=== PATIENT | male | born 1970 | race Caucasian/White ===

== ENCOUNTER 2023-07-20 05:55 | Day surgery (SDC) | payer OTHER, SELFPAY ==
[2023-07-01 07:54] VITALS: BMI 32.7
[2023-07-01 08:20] LABS: % Basophils 0.3 % (0-2); % Eosinophils 1.1 % (0-6); % Immature Granulocytes 0.2 % (0-0.5); % Lymphocytes 19.2 % (20.5-51.1); % Neutrophils 70.2 % (42.2-75.2); Absolute Eosinophils 0.1 10^3/uL (0-0.7); Absolute Lymphocytes 2.2 10^3/uL (1.2-3.4); Absolute Neutrophils 8.1 10^3/uL (1.4-6.5); Hematocrit 35.9 % (39.0-52.0); Mean Corp Hgb Conc. 36.2 g/dL (33.0-37.0); Mean Corpuscular Hgb 33.2 pg (27.0-31.0); Mean Corpuscular Volume 91.6 fL (80.0-94.0); Nucleated Red Blood Cells % 0 % (-); Platelet Count 284 10^3/uL (130-400); Red Blood Cell Count 3.92 10^6/uL (4.70-6.10); Red Cell Dist. Width 11.5 % (11.5-14.5); White Blood Cell Count 11.5 10^3/uL (4.8-10.8)
[2023-07-01 08:40] LABS: INR 1.25; PT 15.6 Sec (11.4-14.6)
[2023-07-01 08:51] LABS: ALT (SGPT) 39 U/L (0-50); AST (SGOT) 27 U/L (17-59); Albumin 4.4 g/dl (3.5-5.0); Alkaline Phosphatase 58 U/L (38-126); Blood Urea Nitrogen 16 mg/dl (9-20); Carbon Dioxide 27 mmol/L (22-30); Chloride 104 mmol/L (98-107); Estimated Creatinine Clearance 99 ml/min; Glucose 101 mg/dl (70-99); Potassium 3.9 mmol/L (3.5-5.1); Sodium 137 mmol/L (135-145); Total Bilirubin 0.8 mg/dl (0.2-1.3); eGFR > 60.00
[2023-07-20] VITALS (11 sets, daily range): BP systolic 112–139; BP diastolic 63–82; BMI 29.6
[2023-07-20 09:04] LABS: ACT-LR - POC 237 Seconds (116-155)
[2023-07-20 09:23] LABS: ACT-LR - POC 260 Seconds (116-155)
[2023-07-20 09:35] LABS: ACT-LR - POC 281 Seconds (116-155); ACT-LR - POC 297 Seconds (116-155)
[2023-07-20 09:49] LABS: ACT-LR - POC 398 Seconds (116-155)
[2023-07-20 10:19] LABS: ACT-LR - POC 361 Seconds (116-155)
[2023-07-20 10:42] LABS: ACT-LR - POC 387 Seconds (116-155)
[2023-07-20 10:55] LABS: ACT-LR - POC 347 Seconds (116-155)
[2023-07-20 11:26] LABS: ACT-LR - POC 353 Seconds (116-155)
[2023-07-20 11:48] LABS: ACT-LR - POC 203 Seconds (116-155)
--- NOTE | 2023-07-20 12:09 | ITS.CL.ABL ---
Production Metal Sprayer - Ablation
Ablation
Procedure Report:
Procedure Date: 07/20/2023
Stove Fitter: Serge Hagen DO
Secondary Senior Biostatistician/Group Leader: Ran Stark MD
Patient History:
Patient is a pleasant 52-year-old male with a past medical history significant for mixed hyperlipidemia, obesity, sleep apnea, paroxysmal fib status post PVI 2020 at [facility].
See H&P for complete details.
Indication:
Symptomatic paroxysmal atrial fibrillation, recurrence post ablation
Arrhythmia Specific History:
Prior Medical Therapies for Rate and Rhythm Control:
X Beta-jaja
[ ] Calcium channel-jaja
[ ] Amiodarone
[ ] Dronederone
[ ] Sotalol
X Flecainide
[ ] Dofetilide
[ ] Options limited by bradycardia
[ ] Options limited by comorbid renal disease
Prior Procedural Therapies for AF/AFL:
[ ] Cardioversion
X Pulmonary Vein Isolation
[ ] Posterior Wall Isolation
[ ] Additional lines (Specify)
[ ] Surgical Acuña-MAZE or PVI (Specify)
Procedure Performed:
X AF ablation procedure (05728) -- includes LA/CS pacing, trans-septal, 3D mapping, + ICE
[ ] +IV drug (47208)
[ ] +Other Arrhythmia (63213)
[ ] +Other AF Line/ablation (53113)
Risks and expected recovery has been explained in detail. Alternative options have been explored, and in a shared-decision making fashion we have decided that this was the most appropriate procedure.
Method
NPO status confirmed. Grounding pad applied. Defibrillator pads applied. Continuous surface ECG, pulse oximetry, and blood pressure were monitored. Procedure was performed under general anesthesia, with anesthesia services.
Both groins were clipped, prepped with Chloraprep, and draped in sterile fashion. Time out was called. Local anesthesia administered with bupivacaine. The right and left femoral veins were accessed for catheter placement, using ultrasound guidance,
micro-puncture needle/wire, and modified seldinger technique. 3 sheaths were placed. The following catheters were used:
[ ] Tacticath SE (D/F Curve) ablation catheter
[ ] Viewflex 9Fr ICE catheter
X Inquiry decapolar 6Fr diagnostic catheter
[ ] CRD Hex 6Fr
[ ] Arctic Front Advance Cryoballoon ([ ]28mm[ ]23mm)
[ ] Achieve Advance mapping catheter ([ ]15mm[ ]20mm)
X FlexCath Contour 10 Fr with PulseSelect PFA Catheter
X Advisor HD Grid Mapping Catheter, SE
[ ] Acuson AcuNav 8 Fr ICE catheter
[ ]Other: [ ]
Intracardiac ultrasound (ICE) was carefully advanced into the right atrium to guide sheath placement over a J-wire, catheter placement, guide trans-septal puncture, identify potential complications, identify anatomic structures and ensure proper
contact between ablation catheter and tissue.
Heparin was given prior to trans-septal puncture. Heparin was given to achieve and maintain a target ACT of 300-400 seconds throughout the procedure.
Trans-septal access was performed under ICE guidance. The trans-septal puncture was performed with a SafeSept wire through a Brockenbrough needle assembly through the steerable sheath. The wire was visualized as it entered the LSPV and system
advanced under ICE guidance and fluoroscopy into the LA. The Brockenbrough needle assembly, SafeSept wire and sheath dilator were removed under negative pressure. LA pressure was measured and recorded.
ICE and 3D mapping was performed to identify relevant cardiac structures. A careful 3D map was created to assess for regions of low-voltage and abnormal electrogram signals using HD grid mapping catheter and PulseSelect catheter. Additional mapping
was performed as outlined below.
During mapping, patient spontaneously went into atrial fibrillation. A 200 J synchronized cardioversion restored sinus rhythm however prior to ablation, patient returned to atrial fibrillation. Therefore, ablation was performed while in atrial
fibrillation. Prior to ablation, glycopyrrolate was provided. PulseSelect catheter was advanced over J-wire to the ostium of each vein. Pulmonary vein isolation was performed with ostial and antral lesions in a circumferential manner. Contact was
visualized via ICE, fluoroscopy, and EGM signals. During ablation, patient spontaneously returned to sinus rhythm. Following completion of ablation lesions, a post-ablation voltage/activation map was performed in sinus rhythm. Entrance and exit
block were confirmed for each vein.
Catheter and sheath were removed from the left atrium and post-ablation intracardiac echo evaluation was consistent with pre-ablation with no changes and no pericardial effusion and there is no left atrial thrombus or left ventricle thrombus seen.
Electrophysiology study was performed. Hemostasis was obtained with Vascade for each sheath and with manual pressure. Protamine was used for reversal.
Estimated Blood Loss
5-10 mL
Complications
None
Fluoroscopy: 21 minutes; 69 mGy; DAP 7.7
Baseline Intervals:
Rhythm: SR
MA: 141 ms
QRS: 103 ms
QT: 408 ms
QTc: 414 ms
A-A: 970 ms
R-R: 970 ms
Post-Procedure Intervals:
MA: 136 ms
QRS: 92 ms
QT: 413 ms
QTc: 358 ms
A-A: 1331 ms
R-R: 1331 ms
AVWB: 380 ms
AVERP: 600/330 ms
Recommendations
- Bedrest with straight-leg precautions as ordered
- Anticipate same day discharge if patient meeting clinical metrics
- Resume home medications as indicated
- Ok to resume anticoagulation tonight if patient and groin sites stable
- PPI daily for 30 days
- Plan for follow-up in office in 4-6 weeks
Serge Hagen DO
Clinical Cardiac Measurement Superintendent
cc: Sung Xiao PA-C
--- NOTE | 2023-07-20 14:36 | W.PN.UPDATE ---
Addendum entered and electronically signed by HELEN Lam 07/20/23 16:56:
Pt unable to void, bladder scan >600cc, st cath for 700cc and gave Flomax 0.4mg. He still wants to go home, I instructed him that if he is unable to void in the next 8-10hrs or becomes uncomfortable again he will need to return to the ER. He should
follow up with a urologist for further evaluation as an outpt. He agrees with the plan and Dr. Hagen/Dr. Stark are aware and agree with plan.
Original Note:
Update Note
Progress Note Update
52 yo WM s/p PVI PF (same day). He feels good, no cp, sob, allison diet, amb w/o dizziness, b/l groins c/d/i no HT, EKG SR. He will take his Eliquis at 6pm at home. HE will take PPI for 30 days. Activity restrictions reviewed. He will f/u Dr. Hagen in
6-8 weeks. He is for d/c home after 230p if voiding and groins stable.
[2023-07-20 15:30] LABS: ACT-LR - POC > 397 Seconds (116-155)
[2023-07-20] MEDS: FLOMAX 0.400000000000000022 MG PO (16:41)
== END 2023-07-20 17:37 | disposition home or self-care (01) ==
LOC: CATH 05:55
PROVIDERS: ATTENDING PHYSICIAN Internal Medicine Cardiovascular Disease; FAMILY PHYSICIAN Physician Assistant
DX: I48.0 Paroxysmal atrial fibrillation (principal); Z79.899 Other long term (current) drug therapy; R00.1 Bradycardia, unspecified; R53.83 Other fatigue; E66.9 Obesity, unspecified; Z68.32 Body mass index [BMI] 32.0-32.9, adult; I49.3 Ventricular premature depolarization; I47.20 Ventricular tachycardia, unspecified; E78.2 Mixed hyperlipidemia; G47.30 Sleep apnea, unspecified; Z79.01 Long term (current) use of anticoagulants
CPT/HCPCS: C1732; C1894; C1769; C1892; C1759; 36415; 75572; 76937; 80053; 83735; 85025; 85347; 85610; 86850; 86900; 86901; 93005; 93656; C1760; Q9967

== ENCOUNTER 2023-07-20 21:21 | Emergency (ER) | payer OTHER, SELFPAY ==
[2023-07-20 21:23] VITALS: BP 161/83
[2023-07-20 21:47] VITALS: BMI 29.6
--- NOTE | 2023-07-20 22:14 | ED.GENMED ---
History of Present Illness
General
Chief Complaint: Male Genito-Urinary Symptoms
Source: patient
Time Seen by Provider: 07/20/23 22:06
Travel History
Have you had any contact with someone who has COVID-19?: No
Do you have any symptoms of coronavirus? Fever > 100 degrees, chills, cough, shortness of breath, sore throat, loss of taste or smell, muscle aches, or headache?: No
History of Present Illness
History of Present Illness:
52-year-old male with past medical history of atrial fibrillation, hypertension, hyperlipidemia, status postcardiac ablation done earlier today noting he has had urinary retention. Patient was retaining urine following the procedure and required a
straight catheterization done and felt okay after this but upon getting home he has been unable to urinate since. Patient does note some lower abdominal pressure and a sensation of needing to void but is unable to do so he denies any fevers or any
other concerns at this time.
Past History
Past History
ED Past Medical History: Arrthythmia, HTN and Hypercholesterolemia
ED Past Surgical History: Cardiac and Orthopedic
Social History
Tobacco: Non-smoker
Alcohol: Occasional
Drug: None
Personal:
Living: with family
Review of Systems
Review of Systems
All Other Systems: ROS reviewed and negative except as documented in HPI and ROS
Phy Exam
Physical Exam
Physical Exam:
GENERAL: Alert , in no apparent distress
EYE: conjunctiva clear
Head: Normocephalic atraumatic
NECK: Supple,
ENT: mmm.
LUNGS: no acute respiratory distress
NEUROLOGICAL: Alert and oriented
SKIN: Warm and dry, skin intact.
MUSCULOSKELETAL: well perfused.
PSYCH: Normal and appropriate interaction.
Scores
Heart Failure Risk
Heart Failure Risk Score: Not Applicable
Heart Score for Chest Pain Patients
STEMI patient?: Not applicable
Withdrawal Assessment of Alcohol
Withdrawal Assessment Completed?: Not applicable
Course
Orders/Labs/Results
Orders:
Orders
07/20/23 22:07
Riley Placement- Treatment ONCE
Reason for insertion: Acute Retention
07/20/23 22:25
Urinalysis Reflex To Culture Urgent
Date Specimen was Collected: 07/20/23
Time Specimen was Collected: :23
Comment: riley
Urine Microscopic Reflex Cult Urgent
Abnormal Lab Results
07/20/23
22:25
Urine Ketones 3+ A
(Negative)
Leukocyte Esterase Rfl Trace A
(Negative)
Urine Bacteria (Reflex) Few A
(Negative)
Vital Signs
Initial and Last Documented VS:
Initial Vital Signs
Temp Pulse Resp BP Pulse Ox
98.1 F 89 16 161/83 98
07/20/23 21:23 07/20/23 21:23 07/20/23 21:23 07/20/23 21:23 07/20/23 21:23
Last Documented Vital Signs
Temp Pulse Resp BP Pulse Ox
98.1 F 89 16 161/83 98
07/20/23 21:23 07/20/23 21:23 07/20/23 21:23 07/20/23 21:23 07/20/23 21:23
MDM/Problems Addressed
Differential Diagnosis Includes:
Anesthesia side effect causing urinary retention, UTI, BPH
MDM/Problems Addressed:
52-year-old male present emergency department for evaluation of urinary retention. He had procedure today and following procedure had urinary retention. I do suspect anesthesia is most likely reasoning behind patient's urinary retention. He had
greater than 400 mL of urine on bladder scan. Given he already had straight catheterization done earlier a decision was made to proceed with indwelling Riley catheter. Patient will follow-up with urology to have this removed. He was advised on
how to care for Riley catheter. Stable for discharge home and aware of return precautions. UA was sent.
*Pulse Oximetry
Patient hypoxic: no
*Critical Care Note
Total Time (30-74mins, 75-104mins- exclusive of procedures): Not Applicable
Data Reviewed
Review of Other/Old Records Reveals: Records
Source: patient
Comment
Comment:
UA unremarkable. Stable for d/c home
Patient Management
Discussion with other providers: [employer] Tech
Escalation/DeEscalation of care consider admission/obs:
Urology team was made aware and will follow-up with patient on an outpatient basis.
ED Attending Note
-
Portions of this chart may have been created with voice recognition software.� Occasional wrong word or��sound alike� substitutions may have occurred due to the inherent limitations of voice recognition software.
Discharge Plan
Departure
Patient Disposition: Home (Routine Discharge)
Date of Disposition: 07/20/23
Time of Disposition: 22:25
Patient with high blood pressure during this ER visit?: Yes
Discharge Problem:
Acute urinary retention
Instructions: Urinary Retention (DC)
Prescriptions:
New
tamsulosin [Flomax] 0.4 mg capsule
0.4 mg PO DAILY Qty: 10 0RF
No Action
atorvastatin 80 mg Tablet
80 mg PO DAILY
ibuprofen 200 mg Capsule
400 mg PO Q6HPRN PRN (Reason: pain)
ezetimibe 10 mg Tablet
10 mg PO DAILY
Eliquis 5 mg Tablet
5 mg PO BID
Zepbound 2.5 mg/0.5 mL Pen Injector
2.5 mg SC QWEEK
Fish Oil
1 tab PO DAILY
Vitamin D3
1 dose PO DAILY
pantoprazole [Protonix] 40 mg tablet,delayed release (DR/EC)
40 mg PO DAILY Qty: 30 0RF
Referrals:
Paxton Gonzalez MD [Active] - (Urology - Call for appointment)
Interventions
Interventions:
*Risk Screen - Suicide Last Done: 07/20/23 21:23
*General Assessment Last Done: 07/20/23 21:23
*Neglect/Abuse Screening Last Done: 07/20/23 21:23
*ED COVID-19 Vaccine History Last Done: 07/20/23 21:23
*Nursing Disposition Last Done: 07/20/23 22:38
ED-Male Genitourinary Assessment Last Done: 07/20/23 21:52
Discharge Date and Time
Discharge Date/Time: 07/20/23 22:39
Print Language: ARABIC
[2023-07-20 22:31] LABS: Urine Albumin Negative (Neg - Trace); Urine Bilirubin Negative (Negative); Urine Character Clear (Clear); Urine Color Yellow; Urine Glucose Negative (Negative); Urine Ketone 3+ (Negative); Urine Leukocyte Trace (Negative); Urine Nitrite Negative (Negative); Urine Occult Blood Negative (Negative); Urine Specific Gravity 1.015 (<1.030); Urine Urobilinogen Negative (Neg - 1+)
[2023-07-20 22:40] LABS: Urine Bacteria Few (Negative); Urine Red Blood Cell 0-2 /HPF (0-2); Urine White Cell 0-2 /HPF (0-5)
== END 2023-07-20 22:39 | disposition home or self-care (01) ==
LOC: EMR 21:21
PROVIDERS: Physician Assistant Medical; EMERGENCY PHYSICIAN Emergency Medicine; FAMILY PHYSICIAN Physician Assistant
DX: R33.9 Retention of urine, unspecified (principal); I10 Essential (primary) hypertension
CPT/HCPCS: 99283; 51798; 51702; 81003; 81015

== ENCOUNTER 2023-09-21 13:10 | Emergency (ER) | payer OTHER, SELFPAY ==
[2023-09-21 13:12] VITALS: BP 146/88
--- NOTE | 2023-09-21 15:02 | ED.GENMED ---
History of Present Illness
<Alexandria Montano PA-C - Last Filed: 09/21/23 23:03>
General
Chief Complaint: DVT/Possible Blood Clot
Source: patient
Exam Limitations: none
Time Seen by Provider: 09/21/23 14:25
Nursing documentation reviewed up to this point in time: agreed with
Travel History
Have you had any contact with someone who has COVID-19?: No
Do you have any symptoms of coronavirus? Fever > 100 degrees, chills, cough, shortness of breath, sore throat, loss of taste or smell, muscle aches, or headache?: No
History of Present Illness
History of Present Illness:
Patient is a 52-year-old male with history of atrial fibrillation s/p ablation on Eliquis, hypertension, hyperlipidemia presenting for evaluation of atraumatic left lower extremity pain and swelling. Patient first noticed swelling in his left knee
immediately following landing in [place] about 10 days ago. Patient states throughout his time in [place] swelling seem to migrate from his left knee down into his left lower leg and for the past week has been relatively consistent. He reports pain
and swelling in his left lower extremity with difficulty ambulating. Patient denies any numbness or tingling in left lower extremity. Patient denies any fever or chills. Patient denies any inciting injury.
Patient does report a recent tick bite on his right lower abdomen but denies any new onset rash or other joint pain.
No personal or family history of blood clots or clotting disorders.
Past History
<Alexandria Montano PA-C - Last Filed: 09/21/23 23:03>
Past History
ED Past Medical History: Arrthythmia, HTN and Hypercholesterolemia
ED Past Surgical History: Cardiac and Orthopedic
Social History
Tobacco: Non-smoker
Alcohol: Occasional
Drug: None
Personal:
Living: with family
Review of Systems
<Alexandria Montano PA-C - Last Filed: 09/21/23 23:03>
Review of Systems
Allergies reviewed?: Yes
All Other Systems: ROS reviewed and negative except as documented in HPI and ROS
Phy Exam
<Alexandria Montano PA-C - Last Filed: 09/21/23 23:03>
Physical Exam
Physical Exam:
Vitals: Patient's vital signs are stable. Afebrile
General: Patient is well appearing, no acute distress
Skin: Warm and dry, erythema and pitting edema of left lower extremity with mild warmth noted
Head: Normocephalic, atraumatic
Eyes: Sclera nonicteric. EOMs intact. No nystagmus.
Throat: Protecting airway
Neck: Normal ROM, no cervical spine tenderness, no meningismus
Cardiac: Regular rate and rhythm, no murmurs.
Pulm: Normal respiratory effort, no wheezes, rales, rhonchi heard on exam.
Abdomen: No abdominal tenderness.
Extremities: Warmth, erythema and 2+ pitting edema of left lower extremity most significant from left mid calf into left foot; ecchymosis of left posterior calf just above ankle; no effusion or warmth of left knee, left Achilles tendon intact; good
distal pulses. sensation full intact
Neuro: AAOx3. CN II-XII intact. No focal neurologic deficits.
Psychiatric: Normal affect.
Course
<Alexandria Montano PA-C - Last Filed: 09/21/23 23:03>
Orders/Labs/Results
Orders:
Orders
09/21/23 13:14
US Legs, Left [US Periph Venous LOWER Ext LT] Urgent
Comment:
Reason For Exam: swelling/ calf pain
09/21/23 15:02
Acetaminophen [Tylenol] 650 mg PO NOW STA
09/21/23 16:20
Doxycycline [Vibramycin] 100 mg PO NOW STA
Furosemide [Lasix] 20 mg IV NOW STA
09/21/23 16:26
Furosemide [Lasix] 20 mg PO NOW STA
Vital Signs
Initial and Last Documented VS:
Initial Vital Signs
Temp Pulse Resp BP Pulse Ox
98.2 F 91 18 146/88 98
09/21/23 13:12 09/21/23 13:12 09/21/23 13:12 09/21/23 13:12 09/21/23 13:12
Last Documented Vital Signs
Temp Pulse Resp BP Pulse Ox
98.2 F 88 16 132/78 98
09/21/23 13:12 09/21/23 16:50 09/21/23 16:50 09/21/23 16:50 09/21/23 16:50
<Anibal Stack, DO - Last Filed: 09/21/23 16:23>
Orders/Labs/Results
Orders:
Orders
09/21/23 13:14
US Legs, Left [US Periph Venous LOWER Ext LT] Urgent
Comment:
Reason For Exam: swelling/ calf pain
09/21/23 15:02
Acetaminophen [Tylenol] 650 mg PO NOW STA
09/21/23 16:20
Doxycycline [Vibramycin] 100 mg PO NOW STA
Furosemide [Lasix] 20 mg IV NOW STA
09/21/23 16:26
Furosemide [Lasix] 20 mg PO NOW STA
Vital Signs
Initial and Last Documented VS:
Initial Vital Signs
Temp Pulse Resp BP Pulse Ox
98.2 F 91 18 146/88 98
09/21/23 13:12 09/21/23 13:12 09/21/23 13:12 09/21/23 13:12 09/21/23 13:12
Last Documented Vital Signs
Temp Pulse Resp BP Pulse Ox
98.2 F 88 16 132/78 98
09/21/23 13:12 09/21/23 16:50 09/21/23 16:50 09/21/23 16:50 09/21/23 16:50
<Alexandria Montano PA-C - Last Filed: 09/21/23 23:03>
MDM/Problems Addressed
Differential Diagnosis Includes:
Not limited to: DVT, cellulitis, muscular strain, muscular tear, hematoma, ruptured Soto's cyst, CHF, dependent edema, venous stasis
MDM/Problems Addressed:
52 year old male presents with worsening atraumatic left lower extremity pain and swelling. Initially noticed after long flight to [facility]. Patient did have recent cardiac ablation and is taking eliquis. Patient did have recent tick bite on right
lower abdomen but denies any associated rash or other associated joint pain. Very low suspicion of Lyme disease association with symptoms. No associated fever, chills, chest pain, or shortness of breath. Vitals stable. Exam as above. US shows no
evidence of DVT although does show findings consistent with hematoma of left lower extremity. Discussed possibly related to calf muscle strain/tear. In conjunction with exam - some concern for infected hematoma of left lower extremity. Will cover
with antibiotics, doxy, and recommend close outpatient follow-up. Patient has cardiology follow-up tomorrow. Return precautions discussed at length. Patient aware of increased sun sensitivity while taking doxycycline. Stable for discharge.
Chronic conditions affecting care:
Atrial fibrillation on Eliquis, hypertension
Acute Exacerbation and/or Progression of Chronic Illness:
Acutely hypertensive
<Alexandria Montano PA-C - Last Filed: 09/21/23 23:03>
*Radiology
Radiology exam reviewed: radiology read reviewed
*Pulse Oximetry
Patient hypoxic: no
*EKG
Interpreted by ED Provider?: NA
*Kier Pleater Interpretation
Rate: Kier Pleater- N/A
*Critical Care Note
Total Time (30-74mins, 75-104mins- exclusive of procedures): Not Applicable
ED Attending Note
<Alexandria Montano PA-C - Last Filed: 09/21/23 23:03>
-
Portions of this chart may have been created with voice recognition software.� Occasional wrong word or��sound alike� substitutions may have occurred due to the inherent limitations of voice recognition software.
<Anibal Stack, DO - Last Filed: 09/21/23 16:23>
ED Attending Note
Patient seen and examined by attending physician: Yes
I performed the substantive portion of visit, reviewed & personally made and approve the management plan that is documented in note by myself or HERRERA.: Yes
ED Attending Note:
I have seen and evaluated the patient with a [id number] encounter. I have spoken to the advance practicer provider and involved in the medical history, the physical exam, medical decision making.
Evaluation and management service: agree unless noted differently below.
Results interpretation: agree unless noted differently below.
Focused HPI: 52-year-old male presenting with left leg swelling and redness. He noticed knee swelling soon after getting off a flight. The knee swelling has resolved but he is now noticing leg swelling. He is on Eliquis. He had a recent cardiac
ablation few days ago. He complains of mild pain but denies fevers
Physical exam: Left knee without effusion. From knee to ankle there is pitting edema and erythema. Distal pulses intact
Medical Decision Making: Ultrasound negative for DVT. Ultrasound suggests hematoma. We discussed possible proximal calf strain versus tear. Will place on doxycycline with concern for an infected hematoma. He has cardiology appointment tomorrow
Discharge Plan
Departure
Patient Disposition: Home (Routine Discharge)
Date of Disposition: 09/21/23
Time of Disposition: 16:20
Patient with high blood pressure during this ER visit?: Yes
Condition: Good
Covid-19: Not Applicable
Discharge Problem:
Infected hematoma
Instructions: Swelling
Prescriptions:
New
doxycycline hyclate 100 mg tablet
100 mg PO BID 7 Days Qty: 14 0RF
furosemide 20 mg tablet
20 mg PO DAILY Qty: 4 0RF
No Action
atorvastatin 80 mg Tablet
80 mg PO DAILY
ibuprofen 200 mg Capsule
400 mg PO Q6HPRN PRN (Reason: pain)
ezetimibe 10 mg Tablet
10 mg PO DAILY
Eliquis 5 mg Tablet
5 mg PO BID
Zepbound 2.5 mg/0.5 mL Pen Injector
2.5 mg SC QWEEK
Fish Oil
1 tab PO DAILY
Vitamin D3
1 dose PO DAILY
pantoprazole [Protonix] 40 mg tablet,delayed release (DR/EC)
40 mg PO DAILY Qty: 30 0RF
tamsulosin [Flomax] 0.4 mg capsule
0.4 mg PO DAILY Qty: 10 0RF
Referrals:
Sung Xiao PA-C [Family Provider] -
Activity Restrictions/Additional Instructions:
RETURN TO THE EMERGENCY DEPARTMENT WITH FEVERS, CHILLS, WORSENING IN SWELLING, REDNESS, OR PAIN IN RIGHT LOWER EXTREMITY, NUMBNESS/TINGLING IN RIGHT LOWER EXTREMITY, CHEST PAIN, SHORTNESS OF BREATH, WORSENING IN CURRENT SYMPTOMS, OR ANY OTHER
CONCERNS
-A prescription for an antibiotic has been sent to your pharmacy. You should take this twice a day for the next week. Your first dose was given to you in the emergency department today. Doxycycline can increase sensitivity to the sun. It is
important to be diligent with sun protectio. I have also sent a prescription for a few pills of Lasix help decrease swelling. You can take 1 pill for the next 4 days. Your first dose was given today in the emergency department.
-As discussed�you should continue to elevate your leg and wear compression socks to reduce swelling. You can take Tylenol as needed for discomfort.
-You should touch base with your public administration teacher regarding continuation of Eliquis versus holding for few days to reduce further bleeding.
-You should follow-up with your primary care doctor in a few days to ensure symptoms are improving. It is important to monitor your symptoms closely and return promptly with any worsening.
Interventions
Interventions:
*Risk Screen - Suicide Last Done: 09/21/23 13:12
*General Assessment Last Done: 09/21/23 13:12
*Neglect/Abuse Screening Last Done: 09/21/23 13:12
ED- Fall Risk Assessment Last Done: 09/21/23 15:15
*Nursing Disposition Last Done: 09/21/23 16:57
ED- Cardiac Assessment Last Done: 09/21/23 15:15
ED- Pulmonary Assessment Last Done: 09/21/23 15:15
ED-Peripheral Vascular Assessment Last Done: 09/21/23 15:15
ED-Skin Assessment Last Done: 09/21/23 15:15
Discharge Date and Time
Discharge Date/Time: 09/21/23 16:58
Print Language: MONGOLIAN
[2023-09-21] MEDS: TYLENOL 650 MG PO (15:18)
[2023-09-21] MEDS: VIBRAMYCIN 100 MG PO (16:48)
[2023-09-21] MEDS: LASIX 20 MG PO (16:48)
[2023-09-21 16:50] VITALS: BP 132/78
== END 2023-09-21 16:58 | disposition home or self-care (01) ==
LOC: EMR 13:10
PROVIDERS: EMERGENCY PHYSICIAN Student in an Organized Health Care Education/Training Program; FAMILY PHYSICIAN Physician Assistant
DX: M79.81 Nontraumatic hematoma of soft tissue (principal); L08.89 Other specified local infections of the skin and subcutaneous tissue; I10 Essential (primary) hypertension; E78.00 Pure hypercholesterolemia, unspecified; I48.91 Unspecified atrial fibrillation; Z79.01 Long term (current) use of anticoagulants
CPT/HCPCS: 99284; 93971

== ENCOUNTER 2025-02-26 06:23 | Day surgery (SDC) | payer OTHER, SELFPAY | END 2025-02-26 10:20 | disposition home or self-care (01) | LOC: GI 06:23 | PROVIDERS: ATTENDING PHYSICIAN Student in an Organized Health Care Education/Training Program | DX: Z12.11 Encounter for screening for malignant neoplasm of colon (principal); D12.3 Benign neoplasm of transverse colon; K62.89 Other specified diseases of anus and rectum; K20.0 Eosinophilic esophagitis; K22.89 Other specified disease of esophagus; R13.10 Dysphagia, unspecified; Z80.0 Family history of malignant neoplasm of digestive organs; Z86.0101 Personal history of adenomatous and serrated colon polyps; Z87.19 Personal history of other diseases of the digestive system | CPT/HCPCS: 43249; 45380; 45381; 43239; 88305 ==

== ENCOUNTER 2025-04-11 06:17 | Day surgery (SDC) | payer OTHER, SELFPAY ==
[2025-04-11 11:23] VITALS: BMI 22.9
[2025-04-11 11:25] VITALS: BP 151/83; BMI 22.9
[2025-04-11 13:35] VITALS: BP 115/75
[2025-04-11 13:45] VITALS: BP 134/86
[2025-04-11 14:00] VITALS: BP 130/75
== END 2025-04-11 14:18 | disposition home or self-care (01) ==
LOC: GI 06:17
PROVIDERS: ATTENDING PHYSICIAN Internal Medicine Gastroenterology
DX: K63.5 Polyp of colon (principal); D12.3 Benign neoplasm of transverse colon; K64.0 First degree hemorrhoids
CPT/HCPCS: 45390; 88305